=== PATIENT | female | born 1955 | race Caucasian/White ===

== ENCOUNTER 2022-03-22 19:31 | Emergency (ER) | payer MEDICARE, SELFPAY ==
[2022-03-22 19:35] VITALS: BP 147/72; PULSE 87; RESP 14; TEMP 37; O2SAT 100
--- NOTE | 2022-03-22 21:08 | ED.EYEPROB ---
HPI - Eye Problem General Chief complaint: Eye Problems Stated complaint: eye problem Time Seen by Provider: 03/22/22 20:24 History of Present Illness HPI Narrative: Patient is a 66-year-old female who presents ER with left eye injury. Reports she believes she struck herself in the eye yesterday while moving some boxes. She noticed today that she had redness to the medial aspect of the sclera of the eye on the left side. No change in vision. No pain in her eye. No discharge or tearing. No flashers or floaters. Related Data Allergies Allergy/AdvReac Type Severity Reaction Status Date / Time No Known Allergies Allergy Unknown Unverified 10/16/07 08:32 Review of Systems Eyes: Eyes: Denies change in vision and Denies photophobia Comments: Subconjunctival hemorrhage left eye, no flashers or floaters. ENT: Denies dizziness and Denies nasal congestion PMFSH Past Medical History Medical History (Updated 03/22/22 @ 21:13 by Johnnie Solitario MD) Ovarian cyst Surgical History Surgical History (Updated 03/22/22 @ 21:13 by Johnnie Solitario MD) History of section History of colonoscopy Exam Narrative: GENERAL: Well-appearing, well-nourished, and in no acute distress. HEAD: Normocephalic, atraumatic. EYES: PERRL and EOMI. subconjunctival hemorrhage left eye medial aspect of the sclera. Viewed with magnification and fluorescein staining and there is no corneal abrasion or foreign body noted. CHEST: Clear to auscultation. No respiratory distress. HEART: Regular rate and rhythm. Normal peripheral pulses. NEURO: Alert and oriented x3. PSYCH: Normal mood and affect. Course Course Emergency Course: Discussed diagnosis and treatment plan. Discharge home. Vital Signs Vital signs: Vital Signs Temperature 98.6 F 03/22/22 19:35 Pulse Rate 87 03/22/22 19:35 Respiratory Rate 14 03/22/22 19:35 Blood Pressure 147/72 H 03/22/22 19:35 Pulse Oximetry 100 03/22/22 19:35 Oxygen Delivery Room Air 03/22/22 19:35 Temperature 98.6 F 03/22/22 19:35 Pulse Rate 87 03/22/22 19:35 Respiratory Rate 14 03/22/22 19:35 Blood Pressure 147/72 H 03/22/22 19:35 Pulse Oximetry 100 03/22/22 19:35 Oxygen Delivery Room Air 03/22/22 19:35 Discharge Plan Discharge Clinical Impression: Subconjunctival hemorrhage Patient Disposition: Home, Self-Care Condition: Stable Instructions: Subconjunctival Hemorrhage (ED) Additional Instructions: Return to the ER if you suffer additional injury, you cannot see, you have flashers or floaters in your visual field, you have additional concerns. Follow-up/Referrals: Rama,Lui Hall MD [Primary Care Provider] -
== END 2022-03-22 21:24 | disposition home or self-care (01) ==
PROVIDERS: Emergency Provider Emergency Medicine; PCP Internal Medicine
DX: H11.32 Conjunctival hemorrhage, left eye (principal); W22.8XXA Striking against or struck by other objects, initial encounter
CPT/HCPCS: 99283